=== PATIENT | male | born 2005 | race Two or more races ===

== ENCOUNTER 2025-06-24 21:20 | Emergency (ER) | payer MEDICAID, SELFPAY ==
[2025-06-24 21:26] VITALS: BMI 27.9
[2025-06-24 21:59] VITALS: BP 134/89; PULSE 68; RESP 18; TEMP 36.7; O2SAT 98
--- NOTE | 2025-06-24 22:13 | XR_ITS ---
Examination: PA lateral chest 2 views Technique upright PA lateral chest 2 views Date and time: June 24, 2025 10:56 PM INDICATIONS: Shortness of breath today. FINDINGS: Normal heart size. Lungs are clear. The osseous structures appear intact IMPRESSION: No active disease
--- NOTE | 2025-06-24 22:16 | PD.EDURI ---
Upper Respiratory Inf. RME/HPI General Chief Complaint: Fever Stated Complaint: CHEST PAIN, SOB, FEVER, COUGH Time Seen by Provider: 06/24/25 22:13 Arrival date/time: 06/24/25 21:20 20M with no significant PMH presents to ED with 2 days of cough, fevers/chills, and intermittent CP when coughing and SOB. Limitations: no limitations Related Data Previous Rx's ?Medication ?Instructions ?Recorded ibuprofen 800 mg tablet 800 mg PO Q8H PRN pain #30 tabs 07/10/21 ibuprofen 400 mg tablet 400 mg PO TID PRN fever or pain 09/03/21 #30 tabs Allergies Allergy/AdvReac Type Severity Reaction Status Date / Time No Known Allergies Allergy Verified 06/24/25 21:25 Review of Systems Review of Systems Systems Reviewed: All systems reviewed, normal except as documented Constitutional Constitutional: Reports system reviewed and no additional complaints, except as documented, Reports as per HPI, Reports chills, Reports fever(s) and Denies headache(s) ENT Ears, Nose, Mouth, and Throat: Denies disequilibrium and Denies headache(s) Cardiovascular Cardiovascular: Reports system reviewed and no additional complaints, except as documented, Denies chest pain and Reports dyspnea Respiratory Respiratory: Reports system reviewed and no additional complaints, except as documented, Reports as per HPI, Reports cough, Reports dyspnea and Reports pain with cough Gastrointestinal Gastrointestinal: Reports system reviewed and no additional complaints, except as documented, Denies abdominal pain, Denies nausea and Denies vomiting Neurologic Neurologic: Reports system reviewed and no additional complaints, except as documented, Denies confusion, Denies disequilibrium and Denies headache(s) Psychiatric Psychiatric: Denies confusion Past Medical History Social History SMOKING STATUS: Never smoker ED Exam General Limitations: Present no limitations General appearance: Present alert and in no apparent distress Head Head exam: Present atraumatic Eye Eye exam: Present normal appearance, PERRL and EOMI ENT ENT exam: Present normal exam, normal oropharynx and mucous membranes moist Neck Neck exam: Present normal inspection, full ROM and trachea midline Chest Chest inspection: Present normal inspection and symmetric chest wall rise Respiratory Respiratory exam: Present normal lung sounds bilaterally Cardiovascular Cardiovascular exam: Present regular rate, normal rhythm and normal heart sounds Abdominal Exam Abdominal exam: Present soft and normal bowel sounds Extremities Exam Extremities exam: Present normal inspection and full ROM Back Exam Back exam: Present normal inspection and full ROM Neurological Exam Neurological exam: Present alert, oriented X3 and CN II-XII intact Psychiatric Psychiatric exam: Present normal affect and normal mood Skin Skin exam: Present warm, dry, intact and normal color Course Quality Measures none Orders Category Date Time Status Bedside COVID-19 Antigen Test NOW Care 06/24/25 22:13 Completed Bedside Influenza A&B Antigen Test NOW Care 06/24/25 22:13 Completed EKG (ED Only) Stat Exams 06/24/25 21:33 Stop Req XR chest 2V Stat Exams 06/24/25 22:13 Taken Vital Signs Vital signs: Vital Signs Temperature 98.0 F 06/24/25 21:59 Pulse Rate 68 06/24/25 21:59 Respiratory Rate 18 06/24/25 21:59 Blood Pressure 134/89 H 06/24/25 21:59 Pulse Oximetry (%) 98 06/24/25 21:59 Oxygen Delivery Method Room Air 06/24/25 21:59 O2 at 98% on RA and WNLs Upper Respiratory Infection MDM Narrative MDM Narrative:: 20M with no significant PMH presents to ED with 2 days of cough, fevers/chills, and intermittent CP when coughing and SOB. Physical exam reveals clear lungs. RRR. Normal WOB. Patient is afebrile, calm, and alert. CXR normal. COVID+. Data Entry Machine Operator given including to return if worsening CP, SOB, and/or syncope. Patient data External records reviewed:: [facility] previous records Clinical information provided by:: patient Social determinants that could affect healthcare access:: none Patient has the following chronic illnesses:: none How is presenting disease/condition affected by chronic disease/condition?: no chronic disease Evaluation data The following diagnostics were reviewed and interpreted by me:: lab results and radiology exam(s) Lab and/or radiology exams considered but not ordered:: ordered Interpretation Summary: above Medications / Prescriptions Medications or Prescriptions considered but not ordered:: not ordered Medication administrations:: n/a Consultations Consultation(s) initiated? (list below): No Diagnosis Upper Respiratory Differential Diagnosis: upper respiratory infection, croup, otitis media, sinusitis, viral infection, bronchitis, influenza, pharyngitis and other (COVID) Most likely diagnosis given after review of the tests above:: COVID Admission Indicated Admission indicated?: not indicated Admission Request Was there a request for admission?: No Disposition Plan Disposition Plan: Discharge Discharge Attestation Discharge Attestation: The patient and all family members were given an opportunity to ask questions and understood the discharge instructions. Discharge instructions specifically effects, indications for sooner follow up or return to the emergency department, and the expected course of current diagnosis. Patient condition: Stable Discharge Plan Plan Patient Disposition: HOME (Self Care) Discharge Disposition comment: Stable Prescriptions/Referrals Prescriptions/Med Rec: No Action ibuprofen 400 mg tablet 400 mg PO TID PRN (Reason: fever or pain) Qty: 30 0RF ibuprofen 800 mg tablet 800 mg PO Q8H PRN (Reason: pain) Qty: 30 0RF Referrals: No Primary/Family,Physician [Primary Care Provider] - In 1 week Problem List Clinical Impression: COVID-19 Patient/Caregiver Discharge Instructions Education Materials: Caring for Someone Who Has COVID-19 Additional Instructions: Please follow-up with PCP within 24-48 hours and return immediately if symptoms worsen. Print Language: Mongolian Stand Alone Forms: Work/School Release, Patient Portal Info Letter [id number] Supervising Physician CHRISTOPHER Supervising Physician: Dr. Gregorio
[2025-06-25 00:05] VITALS: BP 154/90; PULSE 66; RESP 20; TEMP 36.6; O2SAT 100
== END 2025-06-25 00:18 | disposition home or self-care (01) ==
PROVIDERS: Emergency Provider Emergency Medicine
DX: U07.1 COVID-19 (principal)
CPT/HCPCS: 71046; 87400; 87811; 99283